=== PATIENT | male | born 1955 | race Caucasian/White ===

== ENCOUNTER 2021-07-22 00:16 | Observation (INO) ==
[2021-07-22] MEDS ORDERED: Acetaminophen 325 MG TABLET PO PRN ×2 (09:48→13:21)
[2021-07-22] MEDS ORDERED: Melatonin 3 MG TABLET PO PRN (09:48)
[2021-07-22] MEDS ORDERED: Naloxone 0.4 MG/ML INJ IVP PRN (09:48)
[2021-07-22] MEDS ORDERED: Ondansetron 4 MG/2 ML VIAL IVP PRN ×2 (09:48→13:21)
[2021-07-22] MEDS: Ipratropium 1 PUFF INHALER IH SCH ×3 (11:25→22:12)
[2021-07-22 12:26] LABS: Basophils % 0.1 %; Eosinophils % 0.1 %; Hematocrit 48.6 % (37.5-50.1); Hemoglobin 15.4 g/dL (12.9-16.9); Immature Granulocytes % 0.4 % (0-4); Lymphocytes # 0.7 K/mcL (0.6-4.6); Lymphocytes % 10.4 %; Mean Corpuscular HGB Conc 31.7 g/dL (31.6-35.5); Mean Corpuscular Hemoglobin 32.4 pg (28.0-33.3); Mean Corpuscular Volume 102.1 fL (83.0-100.0); Monocytes # 0.6 K/mcL (0.0-1.3); Monocytes % 8.8 %; Neutrophils # 5.4 K/mcL (1.6-8.9); Platelet Count 151 K/mcL (140-400); Red Blood Count 4.76 M/mcL (4.19-5.50); Red Cell Distribution Width 14.2 % (11.5-14.5); Segmented Neutrophils % 80.2 %; White Blood Count 6.8 K/mcL (4.3-11.1)
[2021-07-22 12:34] LABS: INR 1.1; Prothrombin Time 12.6 Seconds (9.4-12.1)
[2021-07-22 12:46] LABS: Albumin 3.5 g/dL (3.5-5.7); Albumin/Globulin Ratio 1.3 (1.1-2.2); Bilirubin,Total 0.4 mg/dL (0.3-1.0); Calcium 8.3 mg/dL (8.6-10.3); Globulin 2.6 g/dL (2.4-3.5); Magnesium 1.6 mg/dL (1.6-2.6); Phosphorous 4.2 mg/dL (2.7-4.5); Total Protein 6.1 g/dL (6.4-8.9)
[2021-07-22] MEDS ORDERED: D5% in Water 1,000 ML IVC PRN (13:18)
[2021-07-22] MEDS ORDERED: Dextrose Gel 15 GM/37.5 ML TUBE PO PRN ×2 (13:18)
[2021-07-22] MEDS ORDERED: *HR* Dextrose 50 % in Water (Syg) 50 ML SYRINGE IVP PRN (13:18)
[2021-07-22] MEDS ORDERED: methylPREDNISolone 125 MG/2 ML VIAL IVP PRN (13:21)
[2021-07-22] MEDS ORDERED: EPINEPHrine 1 MG/ML VIAL IM PRN (13:21)
[2021-07-22] MEDS ORDERED: ETESEVIMAB IVPB ONE (14:00)
[2021-07-22] MEDS ORDERED: BAMLANIVIMAB 700 MG IVPB ONE (14:00)
[2021-07-22] MEDS ORDERED: SODIUM CHLORIDE 0.9% IVPB ONE (14:00)
[2021-07-22 15:38] LABS: Thyroid Stimulating Hormone 0.898 mcIU/mL (0.340-5.600)
[2021-07-22] MEDS: Insulin LISPRO 300 UNITS/3 ML VIAL SUBQ SCH (17:10)
[2021-07-22] MEDS: *HR* Rivaroxaban 10 MG TABLET PO SCH (17:12)
[2021-07-23] MEDS: Ipratropium 1 PUFF INHALER IH SCH ×4 (03:35→20:32)
[2021-07-23] MEDS: Insulin LISPRO 300 UNITS/3 ML VIAL SUBQ SCH ×5 (07:03→20:47)
[2021-07-23] MEDS: Chlorhexidine Rinse 15 ML MOUTHWASH MM SCH ×3 (07:03→20:52)
[2021-07-23] MEDS: traZODone 50 MG TABLET PO SCH ×2 (07:04→20:52)
[2021-07-23] MEDS: Metoprolol XL (24 HR) Succ 50 MG TAB.ER.24H PO SCH (09:05)
[2021-07-23] MEDS: Cholecalciferol (D-3) 1,000 UNIT (25MCG) TABLET PO SCH (09:06)
[2021-07-23 09:12] LABS: Basophils % 0.3 %; Hematocrit 49.3 % (37.5-50.1); Hemoglobin 15.8 g/dL (12.9-16.9); Immature Granulocytes % 0.4 % (0-4); Lymphocytes # 0.8 K/mcL (0.6-4.6); Lymphocytes % 11.4 %; Mean Corpuscular Hemoglobin 31.8 pg (28.0-33.3); Mean Corpuscular Volume 99.2 fL (83.0-100.0); Mean Platelet Volume 9.8 fL (9.4-12.4); Monocytes # 0.7 K/mcL (0.0-1.3); Monocytes % 9.6 %; Neutrophils # 5.3 K/mcL (1.6-8.9); Platelet Count 147 K/mcL (140-400); Red Blood Count 4.97 M/mcL (4.19-5.50); Red Cell Distribution Width 13.6 % (11.5-14.5); Segmented Neutrophils % 78.3 %; White Blood Count 6.8 K/mcL (4.3-11.1)
[2021-07-23 09:30] LABS: BUN/Creatinine Ratio 20 (6-26); Blood Urea Nitrogen 22 mg/dL (8-23); Calcium 8.7 mg/dL (8.6-10.3); Carbon Dioxide 19 mEq/L (23-29); Chloride 109 mEq/L (98-107); Glucose 105 mg/dL (70-105); Magnesium 1.5 mg/dL (1.6-2.6); Osmolality,Calculated 294 (280-300); Potassium 3.9 mEq/L (3.5-5.1); Sodium 140 mEq/L (136-145); eGFR For African Americans > 60 (> 60); eGFR For Non-African Americans > 60 (> 60)
[2021-07-23] MEDS ORDERED: Remdesivir 200 MG in 0.9 % Sodium Chloride 100 ML IVPB ONE (15:00)
[2021-07-23] MEDS: Ampicillin/Sulbactam 1,500 MG in 0.9 % Sodium Chloride Mini Bag 100 ML IVPB SCH ×2 (15:01→17:22)
[2021-07-23] MEDS: *HR* Rivaroxaban 10 MG TABLET PO SCH (17:30)
[2021-07-23] MEDS: Lactobacillus 1 EACH CAP.SPRINK PO SCH (20:52)
[2021-07-24] MEDS: Ampicillin/Sulbactam 1,500 MG in 0.9 % Sodium Chloride Mini Bag 100 ML IVPB SCH ×3 (00:03→13:04)
[2021-07-24] MEDS ORDERED: Oxymetazoline Nasal SPRAY BOTTLE 15ML NS PRN (00:04)
[2021-07-24] MEDS: Ipratropium 1 PUFF INHALER IH SCH ×3 (03:58→15:44)
[2021-07-24 07:23] VITALS: PULSE 93; TEMP 98.3
[2021-07-24 07:24] VITALS: BP 168/92
[2021-07-24] MEDS: Insulin LISPRO 300 UNITS/3 ML VIAL SUBQ SCH ×3 (07:55→15:58)
[2021-07-24] MEDS: Chlorhexidine Rinse 15 ML MOUTHWASH MM SCH ×2 (08:41→09:16)
[2021-07-24] MEDS: Metoprolol XL (24 HR) Succ 50 MG TAB.ER.24H PO SCH (08:42)
[2021-07-24] MEDS: Lactobacillus 1 EACH CAP.SPRINK PO SCH (08:42)
[2021-07-24] MEDS: Cholecalciferol (D-3) 1,000 UNIT (25MCG) TABLET PO SCH (08:43)
[2021-07-24] MEDS ORDERED: Remdesivir 100 MG in 0.9 % Sodium Chloride 100 ML IVPB SCH (14:00)
[2021-07-24 15:46] VITALS: O2SAT 91
[2021-07-24] MEDS: *HR* Rivaroxaban 10 MG TABLET PO SCH (16:45)
== END 2021-07-24 18:15 | disposition home or self-care (01) ==
LOC: 3BNU → SUATTDRO 08:40
PROVIDERS: ADMIT Internal Medicine; ATTEND Internal Medicine